=== PATIENT | female | born 1990 | race African-American/Black ===

== ENCOUNTER → 2016-09-19 | Outpatient (CLI) | payer OTHER ==
[~2016-09-19] MED LIST: ACYC1CAP16 PO; CORTIS10A RIGHT EAR; Z.0.NO CURRENT MEDS
[2016-09-19 11:14] LABS: BASOPHIL % 0.5 % (0.0-2.0); EOSINOPHIL # 0.3 TH/MM3 (0-0.4); EOSINOPHIL % 3.8 % (0.0-4.0); HEMATOCRIT 36.6 % (35.0-46.0); LYMPH % 30.9 % (9.0-44.0); LYMPHOCYTE # 2.7 TH/MM3 (1.0-4.8); MEAN CELL VOLUME 80.1 FL (80.0-100.0); MEAN CORPUSCULAR HEMOGLOBIN 24.9 PG (27.0-34.0); MEAN CORPUSCULAR HGB CONC 31.1 % (32.0-36.0); MONO % 8.9 % (0.0-8.0); NEUT % 55.9 % (16.0-70.0); PLATELET COUNT 296 TH/MM3 (150-450); RED BLOOD COUNT 4.57 MIL/MM3 (4.00-5.30); WHITE BLOOD COUNT 8.9 TH/MM3 (4.0-11.0)
[2016-09-19 11:17] LABS: HEMO FLAGS AUTO DIFF
[2016-09-19 11:24] LABS: BLOOD, URINE NEG (NEG); COMMENT (UR) CULT NOT INDICATED; CULTURE IF INDICATED CULT NOT INDICATED; GLUCOSE,URINE NEG (NEG); KETONE, URINE NEG (NEG); NITRITE,URINE NEG (NEG); PH, URINE 6.5 (5.0-8.5); SQUAMOUS EPITHELIAL CELL URINE 2 /hpf (0-5); URINE COLOR YELLOW (YELLW/STRAW)
[2016-09-19 11:40] LABS: ALT (GPT) 18 U/L (10-53); ANION GAP 7 MEQ/L (5-15); AST (GOT) 10 U/L (15-37); BICARBONATE 24.7 MEQ/L (21.0-32.0); BLOOD UREA NITROGEN 9 MG/DL (7-18); CHLORIDE 107 MEQ/L (98-107); GLOMERULAR FILTRATION RATE 130 ML/MIN (>89); GLUCOSE,FASTING 104 MG/DL (74-99); POTASSIUM 3.9 MEQ/L (3.5-5.1); SODIUM (NA) 139 MEQ/L (136-145)
[2016-09-19 11:42] LABS: ALKALINE PHOSPHATASE 44 U/L (45-117); TOTAL BILIRUBIN ADULT 0.2 MG/DL (0.2-1.0)
[2016-09-19 12:41] LABS: SCAN/DIFF AUTO DIFF CONFIRMED
== END ==
LOC: CPRE 09:59
PROVIDERS: ATTEND Obstetrics & Gynecology
DX: Z01.812 Encounter for preprocedural laboratory examination (principal); O02.1 Missed abortion
CPT/HCPCS: 36415; 80053; 81001; 85025

== ENCOUNTER → 2016-09-23 | Day surgery (SDC) | payer OTHER ==
[~2016-09-23] VITALS: Ht 175.3 cm; Wt 158.4 kg
[~2016-09-23] MED LIST changes: +*PROMETHAZINE 25 MG/ML VIAL PERIprocedural use ONLY ONE; +ACETAMINOPHEN 1000 MG/100 ML VIAL IV ONE; +CHLORHEXIDINE GLUCONATE 2 % 1 PACK (2 CLOTHS) TOPICAL PRN; -CORTIS10A RIGHT EAR; +DO NOT ADM ANY ANTICOAGULANT DRUGS PRN; +FAMOTIDINE 20 MG/2 ML VIAL ONE; +INSULIN HUMAN REGULAR 1,000 UNITS/10 ML VIAL SQ PRN; +LACTATED RINGER'S 1000 ML IV PRN; +METHADONE HCL 10 MG TAB ONE; +METOPROLOL TARTRATE 25 MG TAB PO PRN; +ONDANSETRON HCL 4 MG/2 ML VIAL IV PUSH ONE; +PHENYLEPH/NS 1000 MCG/10 ML SYR IV ONE; +POVIDONE IODINE 5% (ANTISEPSIS KIT) 4 APPLICATIONS EACH NARE PRN; +PROPOFOL 200 MG/20 ML AMP IV ONE; +SODIUM CHLORID 0.9% 500 ML IV PRN; -Z.0.NO CURRENT MEDS; +ceFAZolin 2 GM PREMIX 50 ML IV SCH
[2016-09-23 11:05] VITALS: BP 155/91; PULSE 108; RESP 20; TEMP 100.1; O2SAT 100
--- NOTE | 2016-09-23 13:52 | HHI.DCPOC ---
Discharge Care Plan Diagnosis: (1) Missed Report Symptoms to Your Doctor -Temperate above 100.5 degrees -Redness, of incision or excessive or foul smelling drainage -Unusual pain or calf pain -Increased vaginal bleeding -Painful or difficulty urinating -Feelings of extreme sadness or anxiety after 2 weeks Goals to Promote Your Health * To prevent worsening of your condition and complications * To maintain your health at the optimal level Directions to Meet Your Goals Take your medications as prescribed Follow your dietary instruction Follow activity as directed Ensure plenty of rest for recovery Drink fluids for hydration Keep your appointments as scheduled Take your immunizations and boosters as scheduled If your symptoms worsen call your PCP, if no PCP go to Urgent Care Center or Emergency Room Smoking is Dangerous to Your Health. Avoid second hand smoke Call the 24-hour crisis hotline for domestic abuse at Stephy Romero MD September 23, 2016 13:52
--- NOTE | 2016-09-23 13:54 | HHI.PR ---
Immediate Post Op Note Procedure Date: September 23, 2016 Pre Op Diagnosis: (1) Missed Post Op Diagnosis: (1) Missed Surgeon: Stephy Romero Tow Truck Operator(s): Shannon Alba, MS3 [facility] Procedure: Dilation and curettage with suction Findings: copious products and blood. uterus approx 9 cm in size prior to D&C, approx 7 cm after procedure with good cry after sharp curettage. Specimen(s) removed: products of conception Estimated blood loss: 2600ml Anesthesia: General Drains: None IVF (1500ml) Patient to: PACU Patient Condition: Stephy Floyd MD September 23, 2016 13:54
[2016-09-23 15:13] LABS: HEMATOCRIT 29.4 % (35.0-46.0)
[2016-09-23 15:18] LABS: REVIEW FLAG AUTO DIFF
[2016-09-23 15:45] VITALS: BP 106/54; PULSE 102; RESP 16; TEMP 98.6; O2SAT 98
[2016-09-23 16:34] VITALS: BP 119/61; PULSE 102; RESP 18; TEMP 98.9; O2SAT 99
--- NOTE | 2016-09-28 21:19 | MP ---
cc: STEPHY ROMERO MD DATE OF SURGERY 09/23/16 PREOPERATIVE DIAGNOSIS Missed . POSTOPERATIVE DIAGNOSIS Missed . PROCEDURE Examination under anesthesia, dilation and curettage with suction. INDICATIONS The patient is a 26-year-old G1 who presented to clinic for a routine OB visit at which time she should have been 12 weeks and ultrasound noted no cardiac activity and fetus measured 9 weeks in size. Discussed the findings with the patient, discussed the dangers of medical management at home, offered hospital medical management versus surgical management. The patient was understanding of both options and elected for a D&C. Consent is reviewed and signed. SURGEON Dia Romero MD TRIAGE REGISTER NURSE Angela Alba, MS3, [facility] ESTIMATED BLOOD LOSS 2600 mL IV FLUIDS 1500 mL PREOPERATIVE ANTIBIOTICS Ancef 2 grams IV prior to surgery. DVT prophylaxis SCDs to bilateral lower extremities. COMPLICATIONS Hemorrhage. The patient given Methergine 0.2 mg x1 intraoperatively. FINDINGS Uterus approximately 9 cm in size. Preoperatively cervix is closed. No adnexal masses appreciated. Intraoperatively, copious products of conception, heavy bleeding. SPECIMEN Products of conception to pathology. PROCEDURE IN DETAIL After reviewing informed consent, the patient taken to operating room where general anesthesia was performed. A time-out was performed. The patient was placed in dorsal lithotomy position in Radames stirrups. The perineum was prepped and draped in normal sterile fashion. Exam under anesthesia was performed. See intraoperative findings. The bivalve speculum and the tenaculum was placed in the anterior lip. A #8-Dominican suction curette was placed into the uterus and multiple passes with the suction curette were performed. A sharp curettage was performed. Noted there was still products. Several passes with a suction curette were further performed until bleeding ceased and no further products were extracted. A sharp curettage was performed, noted good cry of all aspects of the uterus. After procedure, uterus decreased in size approximately 6 and 7-week size. No further bleeding was noted. The bivalve speculum and the tenaculum was placed in the anterior lip were both removed. A good hemostasis was noted. The patient was placed in dorsal supine position. Anesthesia was reversed without complication. Immediate postop hemoglobin was performed which was 9. She was hemodynamically stable. Postoperatively with no further vaginal bleeding, she was discharged home with strict bleeding precautions. Methergine 0.2 mg 3 times a day for 3 days and prescription for pain control Percocet and ibuprofen. She is to follow-up in the office in 2 weeks for postoperative visit. Stephy Romero MD PE/ /3:02 PM /9:01 PM DOC
== END | disposition home or self-care (01) ==
LOC: HSDC 10:19
PROVIDERS: ATTEND Obstetrics & Gynecology
DX: O02.1 Missed abortion (principal)
CPT/HCPCS: 01965; 59820; 85014; 85018; 86850; 86900; 86901; 88305; J0131; J0690; J2370; J2405; J2550; J2790; J3010; J7120; 90384